=== PATIENT | male | born 1960 | race Caucasian/White ===

== ENCOUNTER 2017-02-22 09:14 | Emergency (ER) | payer OTHER ==
[~2017-02-22] VITALS: Ht 180.3 cm; Wt 121.8 kg
[2017-02-22 09:18] VITALS: TEMP 37.1; Ht 180.3 cm; Wt 121.8 kg
[2017-02-22] MEDS ORDERED: LISI40TA PO (10:08)
[2017-02-22] MEDS ORDERED: ATOR-24 PO (10:08)
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
[2017-02-22 11:07] VITALS: BP 155/85; PULSE 88; O2SAT 96
== END 2017-02-22 11:09 | disposition home or self-care (01) ==
LOC: C.EDB 09:17 → C.EDC 11:09
DX: S29.9XXA Unspecified injury of thorax, initial encounter (principal); V54.5XXA Driver of pick-up truck or van injured in collision with heavy transport vehicle or bus in traffic accident, initial encounter; Y92.488 Other paved roadways as the place of occurrence of the external cause; E78.5 Hyperlipidemia, unspecified; I10 Essential (primary) hypertension; Z79.899 Other long term (current) drug therapy